=== PATIENT | female | born 1940 | race Caucasian/White ===

== ENCOUNTER → 2021-06-12 | Outpatient (REF) | payer OTHER ==
[2021-06-12 17:42] LABS: C REACTIVE PROTEIN QUANTITATIV < 0.30 MG/DL (0.00-0.30); IRON (FE) 63 UG/DL (50-170); PHOSPHORUS LEVEL 3.6 MG/DL (2.5-4.9); RHEUMATOID FACTOR QUANT 12.1 IU/ML (<15.0)
[2021-06-12 17:54] LABS: TOTAL 25(OH) VITAMIN D 50.1 NG/ML (30.0-100.0)
[2021-06-12 17:55] LABS: VITAMIN B12 LEVEL 612 PG/ML (247-911)
[2021-06-13 19:01] LABS: MAGNESIUM LEVEL 2.3 MG/DL (1.7-2.2)
[2021-06-15 23:07] LABS: ANA (HEP2) Negative (.); CYCLIC CITRULLINATED PEPTIDE 27 units (0-19)
== END ==
LOC: M SFHCRHEU 14:47
PROVIDERS: ATTEND Internal Medicine
DX: M79.10 Myalgia, unspecified site (principal); M25.50 Pain in unspecified joint